=== PATIENT | female | born 1975 | race Caucasian/White ===

== ENCOUNTER 2017-11-07 14:41 | Emergency (ER) | payer OTHER, SELFPAY | END 2017-11-07 18:07 | disposition home or self-care (01) | PROVIDERS: Emergency Provider Emergency Medicine; Visit Provider Emergency Medicine | DX: N39.0 Urinary tract infection, site not specified (principal); Z88.0 Allergy status to penicillin | CPT/HCPCS: 36415; 71020; 80053; 81001; 83605; 85025; 87040; 87070; 87086; 87275; 87276; 87430; 99282 ==

== ENCOUNTER → 2020-08-03 10:10 | Outpatient (CLI) | payer MEDICAID, SELFPAY ==
[2020-08-03 10:39] LABS: Basophils # 0.1 K/mm3 (0-0.2); Basophils % 0.6 % (0.1-2.0); Eosinophils # 0.2 K/mm3 (0.0-0.4); Eosinophils % 2.4 % (0.1-12.0); Hematocrit 41.5 % (37.0-47.0); Hemoglobin 13.8 g/dL (12.2-16.2); Lymphocytes # 2.7 K/mm3 (0.7-4.5); Lymphocytes % 30.6 % (10-50); Mean Corpuscular HGB Conc 33.1 g/dL (31.8-35.4); Mean Corpuscular Hemoglobin 31.4 pg (27.0-31.2); Mean Corpuscular Volume 94.8 fl (81-99); Mean Platelet Volume 7.5 fl (7.4-10.4); Monocytes # 0.5 K/mm3 (0.1-1.0); Monocytes % 5.6 % (1.7-9.3); Neutrophils # 5.4 K/mm3 (1.8-7.8); Neutrophils % 60.9 % (37.0-80.0); Platelet Count 314 K/mm3 (142-424); Red Blood Count 4.38 M/mm3 (4.20-5.40); White Blood Count 8.9 K/mm3 (4.8-10.8)
[2020-08-03 11:17] LABS: Alanine Aminotransferase 10 U/L (12-78); Albumin/Globulin Ratio 1.4 (1.1-1.8); Alkaline Phosphatase 43 U/L (38-126); Anion Gap 11.7 mEq/L (5-15); Aspartate Amino Transferase 21 U/L (14-36); Bilirubin,Total 0.2 mg/dl (0.2-1.3); Blood Urea Nitrogen 11 mg/dl (7-17); Calcium 9.4 mg/dl (8.4-10.2); Carbon Dioxide 30 mmol/L (22.0-30.0); Chloride 102 mmol/L (98-107); Chol/HDL Ratio 3.3 (1-3.5); Cholesterol 135 mg/dl (140-200); Estimated Glomerular Filt Rate 79 ml/min (>60); GFR (African American) 95 ML/MIN (>60); Globulin 2.8 g/dL (1.3-3.2); Glucose 103 mg/dl (74-100); HDL Cholesterol 41 mg/dl (40-60); Potassium 4.7 mmoL/L (3.5-5.1); Sodium 139 mmol/L (136-145); Total Protein,Serum 6.8 g/dl (6.3-8.2); Triglycerides 149 mg/dl (30-150); VLDL Cholesterol 30 mg/dL (0-40)
[2020-08-03 11:27] LABS: Direct LDL Cholesterol 72.08 mg/dL (100-129)
--- NOTE | 2020-08-03 13:14 | US_ITS ---
PROCEDURE: US TRANSVAGINAL CLINICAL INDICATION: pelvic pain, enlarged uterus COMPARISON: No exams were available for comparison FINDINGS: UTERUS: 9cm x 5cmx 4cm with a combined endometrial thickness of 7.7mm LEFT OVARY: [id number] with a volume of 4.6ml. RIGHT OVARY: [id number] with a volume of 10.6ml. In the posterior aspect of the fundus of the uterus there is a 2.1 x 1.7 cm area of decreased echogenicity consistent with a uterine fibroid. Second fibroid is present in the fundus measuring 1.8 cm. There is an 18 mm left ovarian cyst and a 2.6 cm right ovarian cyst with an internal septation. No cul-de-sac fluid. IMPRESSION: 1. Slightly bulky uterus with 2 fibroids. 2. Small bilateral ovarian cysts Dictated by: Jeffrey Yung MD 08/03/2020 16:18 Jeffrey Yung MD in [place] 08/03/2020 16:18
--- NOTE | 2020-08-03 13:14 | MM_ITS ---
PROCEDURE: MM DIG SCREENING MAMM BI W/CAD Digital Breast Tomosynthesis Included CLINICAL INDICATION: baseline xmg There is no personal or family history of breast cancer. COMPARISON: This is a baseline screening exam, patient without complaints TECHNIQUE: Standard CC and MLO images and 3D Tomosynthesis was obtained. R2 CAD reviewed. FINDINGS: Moderate diffuse fibroglandular densities are seen in the central portions of both breast and upper outer quadrants. The findings are fairly symmetrical bilaterally. There is no suspicious lesion and no suspicious microcalcifications. IMPRESSION: Fibrofatty parenchyma with no suspicious lesions seen BI-RAD Category: 1 Negative FOLLOW-UP: 1YR 1 Year Follow-up (A letter has been sent to the patient regarding results of the study.) Dictated by: Dr. Leonardo Cordoba MD 08/04/2020 14:12 Dr. Leonardo Cordoba MD in [place] 08/04/2020 14:12
== END ==
PROVIDERS: PCP Family Medicine; Visit Provider Nurse Practitioner Obstetrics & Gynecology
DX: Z01.419 Encounter for gynecological examination (general) (routine) without abnormal findings (principal); Z12.31 Encounter for screening mammogram for malignant neoplasm of breast; N85.2 Hypertrophy of uterus; R10.2 Pelvic and perineal pain
CPT/HCPCS: 36415; 76830; 77063; 77067; 80053; 80061; 85025

== ENCOUNTER 2020-08-14 14:46 | Emergency (ER) | payer MEDICAID, SELFPAY ==
[2020-08-14 14:57] VITALS: BP 133/85; PULSE 73; RESP 19; TEMP 36.9; O2SAT 98; BMI 27.3
--- NOTE | 2020-08-14 15:13 | HMH.EDUTC ---
[facility] [place] Clinical Impression: Close exposure to COVID-19 virus Disposition: Home, Self-Care Condition on Discharge: Good Instructions: Preventing the Spread of Coronavirus Discharge Instructions Additional Instructions: You was tested for COVID 19 and was given handout, make sure to follow instructions per the handout Call back later this evening around 7pm to see if your test results are back and the result Return if needed Over the counter Motrin and/or Tylenol as instructed on the package for fever or pain Straight to ER if any life threatening symptoms Referrals: PCP,No [Primary Care Provider] - As needed Forms: Work/School Release Medical Decision Making - Cordell Inquiry Pt receiving controlled substance: No Cordell was queried for this patient: No Vital Signs: 08/14/20 14:57 Temperature 98.5 F Temperature Source Oral Pulse Rate [Right Brachial] 73 Respiratory Rate 19 Blood Pressure [Right Arm] 133/85 Blood Pressure Mean [Right Arm] 101 Blood Pressure Source [Right Arm] Automatic Cuff Blood Pressure Position [Right Arm] Sitting 02 Sat by Pulse Oximetry 98 Oxygen Delivery Method Room Air Orders (Tests/Meds): ORDERS Category Date Time Status Covid-19 Nasal PCR ([facility]) Routine Lab 08/14/20 14:51 Ordered [facility] [place] - General Stated complaint: covid test Time Seen by Provider: 08/14/20 15:13 Mode of Arrival: Ambulatory Source of Information: Patient Limitations: No Limitations Description of Symptoms (Recalled from Triage Doc. by RN): PATIENT NEEDING A COVID TEST FOR WORK. 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 for COVID States that the health dept called her earlier today and told her that she needs to be tested prior to returning to work due to working in such close proxemity Patient denies any symtpoms - Related Data Home Medications Medication Instructions Recorded Confirmed No Known Home Medications 07/25/20 08/14/20 Allergies Allergy/AdvReac Type Severity Reaction Status Date / Time Penicillins [PENICILLINS] Allergy Mild Verified 07/25/20 15:10 - Worker's Comp Is this a Worker's Comp case?: No [facility] History - Hepatitis A Screen Drug use history?: No High risk sexual behaviors?: No History of sexually transmitted infection?: No Currently employed?: No Childcare worker?: No Do you have indoor plumbing?: Yes Do you have electricity?: Yes Attestation statement:: This patient has been screened for Hepatitis A risk factors. I have reviewed the patient's past medical history: Yes Medical History: Denies:: Diabetes Mellitus Type 2, Hypertension Other Surgeries: Yes: No Previous Surgery, Tubal Ligation - Social History Smoking Status: Never smoker Alcohol Intake: never Occupational Status: other Family Hx:: Heart Attack, Hypertension, Cancer [employer] history: Tubal Ligation ROS Obtained: Yes All systems reviewed & no additional complaints, Yes Systems reviewed as appropriate & no additional complaints - Constitutional Constitutional: Reports system reviewed and no additional complaints, except as docu, Denies body ache, Denies chills, Denies fever(s), Denies headache(s) - ENT Ears, Nose, Mouth, and Throat: Denies sore throat - Cardiovascular Cardiovascular: Reports system reviewed and no additional complaints, except as docu - Respiratory Respiratory: Yes system reviewed and no additional complaints, except as docu - Gastrointestinal Gastrointestingal: Reports: system reviewed and no additional complaints,
[2020-08-14 15:21] VITALS: BP 133/85; PULSE 73; RESP 19; TEMP 36.9; O2SAT 98
== END 2020-08-14 15:22 | disposition home or self-care (01) ==
PROVIDERS: Emergency Provider Nurse Practitioner
DX: Z20.828 Contact with and (suspected) exposure to other viral communicable diseases (principal)
CPT/HCPCS: 99201; U0003

== ENCOUNTER → 2021-08-07 16:52 | Outpatient (CLI) | payer OTHER, SELFPAY ==
--- NOTE | 2021-08-07 16:57 | XR_ITS ---
PROCEDURE: XR CERVICAL SPINE 5V CLINICAL INDICATION: CERVICALGIA, LT ARM NUMBNESS COMPARISON: No exams were available for comparison FINDINGS: There is straightening of the cervical lordosis with 2 mm anterolisthesis of C4 on C5. Degenerative disc disease is present at C5-C6 and C6-C7. There are small anterior osteophytes at those levels. Minimal foraminal narrowing noted at C5-C6 and C6-C7 on both sides. No fracture or dislocation. No lytic or blastic change. No evidence of cervical rib. IMPRESSION: Straightening of cervical lordosis which could be due to patient positioning or muscle spasm with degenerative disc disease and minimal bilateral foraminal narrowing at C5-C6 and C6-C7 Dictated by: Jeffrey Yung MD 08/10/2021 16:12 Jeffrey Yung MD in [place] 08/10/2021 16:12
== END ==
PROVIDERS: PCP Family Medicine; Visit Provider Nurse Practitioner Family
DX: M54.2 Cervicalgia (principal); R20.0 Anesthesia of skin
CPT/HCPCS: 72050

== ENCOUNTER → 2021-09-03 07:48 | Outpatient (CLI) | payer OTHER, SELFPAY ==
--- NOTE | 2021-09-03 07:49 | CA_ITS ---
APPROVED REPORT Exam: Exercise Treadmill Technologist: MARAL MOLINA, Ht: 5 ft 0 in Wt: 137 lbs BSA: 1.59 m2 HR: 64 bpm BP: 130/78 mmHg Indications: CP, SHOULDER PAIN Medical History Medications: Metronidazole,,,,, Stress Test Details Test: Damien HR Resting HR: 72 bpm Max Heart Rate (APMHR): 177 bpm Max HR Achieved: 176 bpm Target HR (85% APMHR): 150 bpm % of APMHR: 99 Recovery HR: 104 bpm BP Resting BP: 130/78 mmHg Max BP: 190/90 mmHg Recovery BP: 140.0/89.0 mmHg ECG Resting ECG: Sinus Rhythm Clinical Exercise duration: 09:30 min Highest Stage Achieved: Exercise capacity: 10.1 METs Stress ECG Conclusion Exercised 9:30 METs: 10.1 Max BP: 190/90 Max HR: 176 bpm Stopped due to Shortness of Breath Symptoms: No CP, (+) SOB during peak infusion. Resolved in Recovery. Arrhythmias/Ectopy: No ectopy. ST-T Changes: greater than 1.5mm ST Depression. (1) GXT only (2) Appropriate BP response (3) Less than 1.5mm ST Depression at peak infusion (4) No CP (5) No Ectopy normal GXT Electronically signed by : Caio Donovan MD 09/03/2021 21:05:21
--- NOTE | 2021-09-03 07:49 | CA_ITS ---
APPROVED REPORT Coat Feller: Karen Giron RVT Laterality: Bilateral Study Quality: Good Indications: atypical angina/left arm numbness Risk Factors Hypertension: Doppler Spectral Velocity Analysis ECA (R) 89.80/20.30 cm/s ECA (L) 85.50/23.50 cm/s dICA (R) 99.40/44.90 cm/s dICA (L) 95.20/53.50 cm/s Arcelia (R) 93.00/43.80 cm/s Arcelia (L) 75.90/35.30 cm/s pICA (R) 61.00/24.60 cm/s pICA (L) 61.00/33.10 cm/s dCCA (R) 64.20/21.40 cm/s dCCA (L) 66.30/24.60 cm/s pCCA (R) 92.00/29.90 cm/s pCCA (L) 67.40/27.80 cm/s Vert (R) 28.90/12.80 cm/s Vert (L) 38.50/17.10 cm/s ICA/CCA 1.55 ICA/CCA 1.44 Findings Study suggests no evidence of stenosis of the right internal cartoid artery. Study suggests no evidence of stenosis of the left internal cartoid artery. Antegrade flow seen bilateral vertebral arteries. Conclusion Study suggests no evidence of stenosis of the right internal cartoid artery. Study suggests no evidence of stenosis of the left internal cartoid artery. Antegrade flow seen bilateral vertebral arteries. Electronically signed by : Jeffrey Yung MD 09/03/2021 15:24:51
--- NOTE | 2021-09-03 07:49 | CA_ITS ---
APPROVED REPORT EXAM: Comprehensive 2D, Doppler, and color-flow Echocardiogram Delivery Director: Karen Giron RVT Ht: 5 ft 0 in Wt: 137lbs BSA: 1.59 BP: 142/80 mmHg Indications: CP,LT ARM NUMBNESS,FAMILY HX CAD,SMOKER 2D Dimensions LVOT 1.99 cm (M/F) 1.5-2.5 LA Volume 38.30 mL LA Volume Index 24.08 mL/m2 (M/F) 16-34 M-Mode Dimensions RVDd 2.95 cm (0.9-2.6) LA Diam 2.94 cm (1.9-4.0) LVDd 4.73 cm (3.5-5.7) Ao Diam 2.79 cm (2.0-3.7) LVDs 2.98 cm (3.5-5.7) IVSd 0.44 cm (0.6-1.1) PWd 0.74 cm (0.6-1.1) EF (Teich) 66.90% FS 37.00% EDV (Teich) 103.90 mL TAPSE 1.69 (<1.7) ESV (Teich) 34.40 mL LV Diastology E Decel Time 183.00 (160-240 msec) E/A Ratio 1.7 MED E' 9.10 (< 7 cm/sec) E'/MED E' Ratio 8.01 (>14) LAT E' 15.40 (<10 cm/sec) E/LAT E' Ratio 4.73 (>14) Aortic Valve AO Peak GR. 3.20 mmHg Mitral Valve MV E Max Trip. 73.00 (40-130 cm/s) MV A Velocity 44.00 (40-130 cm/s) E/A Ratio 1.67 MV Decel. Time 183.00 (160-240 ms) MV PHT 54.00 ms Pulmonary Valve PV Peak Velocity 50.00 (50-150 cm/s) Tricuspid Valve TR P. Velocity 208.00 cm/s RAP Estimate 10.00 mmHg RVSP 27.30 mmHg Left Ventricle Left atrium is normal size, left ventricle is normal size, there is no concentric left ventricular hypertrophy, visually estimated ejection fraction 55% with no regional wall motion abnormality, diastolic parameters are within normal range. Right Ventricle Right atrium and right ventricle are normal size and contractility. Aortic Valve Aortic valve is grossly normal, there is no aortic stenosis or aortic insufficiency. Mitral Valve Mitral valve grossly normal, there is trace mitral regurgitation. Tricuspid Valve Tricuspid valve grossly normal, there is trace tricuspid regurgitation, tricuspid regurgitation jet velocity is inadequate for calculation of the right ventricular systolic pressure. Pulmonic Valve Pulmonic valve is poorly visualized. Great Vessels Aortic root is normal size. Inferior vena cava normal size with normal inspiratory collapse. Pericardium No significant pericardial effusion noted. Conclusion 1. Normal left ventricular size, preserved left ventricular systolic function, visually estimated ejection fraction 55% with no regional wall motion abnormality, diastolic parameters are within normal range. 2. Trace mitral and tricuspid regurgitation. 3. No significant pericardial effusion noted. 4. Inferior vena cava is normal size with normal inspiratory collapse. Electronically signed by : Caio Donovan MD 09/03/2021 21:31:14
--- NOTE | 2021-09-03 08:55 | MR_ITS ---
PROCEDURE: MR CERVICAL SPINE WO CON CLINICAL INDICATION: Left-sided neck and arm pain COMPARISON: CR XR CERVICAL SPINE 5V from 08/07/2021 TECHNIQUE: Standard multiplanar multiecho sequences are performed without contrast. 3-D MIP and myelographic images are also rendered and reviewed FINDINGS: There is reversal of the cervical lordosis. This could be due to patient positioning or muscle spasm. The craniocervical junction has an unremarkable appearance. C2-C3: Unremarkable. C3-C4: Unremarkable. C4-C5: Unremarkable. C5-C6: Mild degenerative disc disease. C6-C7: Mild degenerative disc disease with bulging disc. There is a small broad-based central right paracentral and foraminal disc protrusion causing mild right lateral recess and foraminal narrowing. There is some minimal cord flattening along the anterior right aspect of the cord secondary to the disc protrusion with narrowing of the canal on the right measuring approximately 9 mm. C7-T1: Unremarkable. No acute fracture or dislocation is evident. IMPRESSION: There is a small broad-based disc protrusion at C6-C7 in the right paracentral foraminal and lateral area causing right lateral recess narrowing with mild impingement upon the cord anteriorly and right foraminal narrowing. There is reversal cervical lordosis which may be due to patient positioning or muscle spasm. Mild degenerative disc disease C5-C6 and C6-C7. Dictated by: Jeffrey Yung MD 09/03/2021 13:06 Jeffrye Yung MD in [place] 09/03/2021 13:06
[2021-09-03 10:47] LABS: Basophils % 0.4 % (0.1-2.0); Eosinophils # 0.1 K/mm3 (0.0-0.4); Eosinophils % 1.3 % (0.1-12.0); Hematocrit 40.3 % (37.0-47.0); Hemoglobin 12.9 g/dL (12.2-16.2); Lymphocytes # 1.9 K/mm3 (0.7-4.5); Mean Corpuscular HGB Conc 32.1 g/dL (31.8-35.4); Mean Corpuscular Hemoglobin 31.8 pg (27.0-31.2); Mean Corpuscular Volume 99.1 fl (81-99); Mean Platelet Volume 7.5 fl (7.4-10.4); Monocytes # 0.5 K/mm3 (0.1-1.0); Monocytes % 4.6 % (1.7-9.3); Neutrophils # 7.4 K/mm3 (1.8-7.8); Neutrophils % 74.7 % (37.0-80.0); Platelet Count 309 K/mm3 (142-424); Red Blood Count 4.06 M/mm3 (4.20-5.40); Red Cell Distribution Width 13.5 % (11.5-17.5); White Blood Count 9.8 K/mm3 (4.8-10.8)
[2021-09-03 11:24] LABS: Chloride 105 mmol/L (98-107); Potassium 4.6 mmoL/L (3.5-5.1); Sodium 141 mmol/L (136-145)
[2021-09-03 11:27] LABS: Alanine Aminotransferase 8 U/L (12-78); Albumin Level 3.8 g/dl (3.5-5.0); Alkaline Phosphatase 52 U/L (38-126); Anion Gap 11.6 mEq/L (5-15); Aspartate Amino Transferase 20 U/L (14-36); Bilirubin,Direct 0.1 mg/dl (0.0-0.4); Blood Urea Nitrogen 14 mg/dl (7-17); Calcium 8.8 mg/dl (8.4-10.2); Carbon Dioxide 29 mmol/L (22.0-30.0); Cholesterol 140 mg/dl (140-200); Estimated Glomerular Filt Rate 91 ml/min (>60); GFR (African American) 111 ML/MIN (>60); Glucose 96 mg/dl (74-100); Total Protein,Serum 6.4 g/dl (6.3-8.2); Triglycerides 228 mg/dl (30-150); VLDL Cholesterol 46 mg/dL (0-40)
[2021-09-03 11:28] LABS: Chol/HDL Ratio 3.4 (1-3.5); HDL Cholesterol 41 mg/dl (40-60)
[2021-09-03 11:32] LABS: Bilirubin,Total 0.1 mg/dl (0.2-1.3)
[2021-09-03 11:39] LABS: Direct LDL Cholesterol 60.96 mg/dL (100-129)
[2021-09-03 11:47] LABS: Free T4 (Free Thyroxine) 0.84 ng/dl (0.78-2.19)
[2021-09-03 12:01] LABS: Thyroid Stimulating Hormone 2.42 uIU/mL (0.465-4.68)
== END ==
PROVIDERS: PCP Nurse Practitioner Family; Visit Provider Nurse Practitioner Family
DX: I20.8 Other forms of angina pectoris (principal); R20.0 Anesthesia of skin; Z72.0 Tobacco use; Z82.49 Family history of ischemic heart disease and other diseases of the circulatory system
CPT/HCPCS: 36415; 72141; 76376; 80048; 80061; 80076; 84439; 84443; 85025; 93017; 93306; 93880

== ENCOUNTER → 2021-11-02 10:55 | Outpatient (CLI) | payer OTHER, SELFPAY | PROVIDERS: PCP Nurse Practitioner Family; Visit Provider Nurse Practitioner | DX: U07.1 COVID-19 (principal) | CPT/HCPCS: C9803; U0003; U0005 ==

== ENCOUNTER 2022-06-10 15:34 | Emergency (ER) | payer OTHER, SELFPAY ==
[2022-06-10] VITALS (7 sets, daily range): BP systolic 133–175; BP diastolic 73–95; PULSE 58–74; RESP 16–18; TEMP 36.9–37.1; O2SAT 98–100; BMI 27.1
[2022-06-10 16:15] LABS: Basophils # 0.1 K/mm3 (0-0.2); Basophils % 0.7 % (0.1-2.0); Eosinophils # 0.2 K/mm3 (0.0-0.4); Eosinophils % 1.9 % (0.1-12.0); Hematocrit 34.7 % (37.0-47.0); Hemoglobin 11.7 g/dL (12.2-16.2); Lymphocytes # 3.1 K/mm3 (0.7-4.5); Lymphocytes % 33.1 % (10-50); Mean Corpuscular HGB Conc 33.8 g/dL (31.8-35.4); Mean Corpuscular Hemoglobin 29.3 pg (27.0-31.2); Mean Corpuscular Volume 86.6 fl (81-99); Mean Platelet Volume 6.8 fl (7.4-10.4); Monocytes # 0.4 K/mm3 (0.1-1.0); Monocytes % 4.1 % (1.7-9.3); Neutrophils # 5.6 K/mm3 (1.8-7.8); Neutrophils % 60.1 % (37.0-80.0); Platelet Count 335 K/mm3 (142-424); Red Blood Count 4.01 M/mm3 (4.20-5.40); Red Cell Distribution Width 14.3 % (11.5-17.5); White Blood Count 9.3 K/mm3 (4.8-10.8)
[2022-06-10 16:24] LABS: Chloride 104 mmol/L (98-107)
[2022-06-10 16:25] LABS: Potassium 3.6 mmoL/L (3.5-5.1); Sodium 137 mmol/L (136-145)
[2022-06-10 16:27] LABS: Blood Urea Nitrogen 16 mg/dl (7-17); Creatinine Clearance Estimated 89 mL/min (50-200); Estimated Glomerular Filt Rate 78 ml/min (>60); GFR (African American) 94 ML/MIN (>60)
[2022-06-10 16:28] LABS: Alanine Aminotransferase 14 U/L (12-78); Albumin Level 4.2 g/dl (3.5-5.0); Albumin/Globulin Ratio 1.5 (1.1-1.8); Alkaline Phosphatase 56 U/L (38-126); Anion Gap 8.6 mEq/L (5-15); Aspartate Amino Transferase 30 U/L (14-36); Bilirubin,Total 0.3 mg/dl (0.2-1.3); Calcium 9.3 mg/dl (8.4-10.2); Carbon Dioxide 28 mmol/L (22.0-30.0); Globulin 2.8 g/dL (1.3-3.2); Glucose 105 mg/dl (74-100)
--- NOTE | 2022-06-10 16:41 | HMH.EDGENADL ---
ED Disposition Clinical Impression: Left facial numbness Disposition: Home, Self-Care Condition on Discharge: Good Additional Instructions: I put in a referral for neurology for you to see Dr. Cox. Should call you to schedule his appointment. The neurosurgery department should also get you an appointment with Dr. Dillon Friday. Please call their office tomorrow but they should also be calling you to schedule. Please return with any new or worsening symptoms. Referrals: Lise Rubio APRN [Primary Care Provider] - Irene Cox MD [Staff Physician] - - Critical Care Critical Care Time: No Attestation: On 06/10/22, the high probability of a clinically significant, sudden or life threatening deterioration of the following system(s) required my full and direct attention, intervention and personal management. The time I documented below is in addition to time spent performing reported procedures but includes the following listed in this critical care notation. Medical Decision Making - Cordell Inquiry Pt receiving controlled substance: No Cordell was queried for this patient: No Vital Signs: 06/10/22 16:00 06/10/22 16:03 06/10/22 16:31 Temperature 98.5 F Temperature Source Oral Pulse Rate 74 63 Pulse Rate [Left Radial] 70 Respiratory Rate 18 Blood Pressure 175/95 H 137/73 Blood Pressure [Right Arm] 164/91 H Blood Pressure Mean 106 Blood Pressure Mean [Right Arm] 115 Blood Pressure Source [Right Arm] Automatic Cuff Blood Pressure Position [Right Arm] Sitting 02 Sat by Pulse Oximetry 99 100 98 Oxygen Delivery Method Room Air 06/10/22 17:01 06/10/22 17:30 06/10/22 18:00 Temperature Temperature Source Pulse Rate 64 58 L 60 Pulse Rate [Left Radial] Respiratory Rate Blood Pressure 135/86 145/82 H 133/79 Blood Pressure [Right Arm] Blood Pressure Mean 103 104 Blood Pressure Mean [Right Arm] Blood Pressure Source [Right Arm] Blood Pressure Position [Right Arm] 02 Sat by Pulse Oximetry 100 99 98 Oxygen Delivery Method - Lab Data Lab Results 06/10/22 16:00: WBC 9.3, RBC 4.01 L, Hgb 11.7 L, Hct 34.7 L, MCV 86.6, MCH 29.3, MCHC 33.8, RDW 14.3, Plt Count 335, MPV 6.8 L, Neut % (Auto) 60.1, Lymph % (Auto) 33.1, [place] % (Auto) 4.1, Eos % (Auto) 1.9, Baso % (Auto) 0.7, Neut # (Auto) 5.6, Lymph # (Auto) 3.1, [place] # (Auto) 0.4, Eos # (Auto) 0.2, Baso # (Auto) 0.1 06/10/22 16:00: Sodium 137, Potassium 3.6, Chloride 104, Carbon Dioxide 28, Anion Gap 8.6, BUN 16, Creatinine 0.80, Estimated Creat Clear 89, Estimated GFR 78, Est GFR ( Amer) 94, Glucose 105 H, Calcium 9.3, Total Bilirubin 0.3, AST 30, ALT 14, Alkaline Phosphatase 56, Total Protein 7.0, Albumin 4.2, Globulin 2.8, Albumin/Globulin Ratio 1.5 06/10/22 16:00: Serum HCG, Qual Negative Result diagrams: 06/10/22 16:00 06/10/22 16:00 Orders (Tests/Meds): ED MEDICATIONS Discontinued Medications Generic Name Dose Route Start Last Admin Trade Name Freq PRN Reason Stop Dose Admin Hydralazine HCl 10 mg 06/10/22 20:45 06/10/22 21:42 Hydralazine 20mg/Ml Vial IV 06/10/22 20:46 10 mg ONCE ONE Administration Medical Decision Narrative: In review this is a 46-year-old female who presents with left-sided facial numbness. Hemodynamically stable and nontoxic-appearing. Physical examination shows diminished sensation to the left sided V3 distribution but no other neurodeficits at this time. Due to this we will get laboratory studies as well as a head CT to evaluate for any abnormalities. Laboratory studies were unremarkable and nonactionable at this time. CT scan was pertinent for a frontal hemorrhage versus cavernous malformation. 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 I reassessed her and she continues to have some le
--- NOTE | 2022-06-10 17:15 | PC.NURSE ---
ED MD AT BEDSIDE FOR EVALUATION
--- NOTE | 2022-06-10 17:27 | CT_ITS ---
PROCEDURE INFORMATION: Exam: CT Head Without Contrast Exam date and time: 06/10/2022 5:33 PM Age: 46 years old Clinical indication: Stroke-like symptoms; Other: Face numbness/paresthesia; Additional info: Facial numbness TECHNIQUE: Imaging protocol: Computed tomography of the head without contrast. Radiation optimization: All CT scans at this facility use at least one of these dose optimization techniques: automated exposure control; mA and/or kV adjustment per patient size (includes targeted exams where dose is matched to clinical indication); or iterative reconstruction. Other technique: STROKE PROTOCOL was implemented. COMPARISON: MR CERVICAL SPINE WO CON 09/03/2021 9:06 AM FINDINGS: Brain: Hyperdense structure at the spears-white matter junction right frontal lobe that measures 0.9 cm in size. There is no other area of intracranial hemorrhage. There is no focal mass. There is no significant midline shift. Cerebral ventricles: No ventriculomegaly. Paranasal sinuses: Visualized sinuses are unremarkable. No fluid levels. Mastoid air cells: Visualized mastoid air cells are well aerated. Bones/joints: Unremarkable. No acute fracture. Soft tissues: Normal. IMPRESSION: 1. Hyperdense structure at the spears-white matter junction right frontal lobe that measures 0.9 cm in size. This may be sales representative uniforms of either a small focus of hemorrhage versus less likely a cavernous malformation. 2. The remainder of the examination is unremarkable. There is no other area of hemorrhage present. ASSESSMENT: ASPECTS ([place] Stroke Program Early CT Score) is 10.
[2022-06-10 17:45] LABS: HCG Qualitative, Serum Negative (Negative)
--- NOTE | 2022-06-10 20:47 | PC.NURSE ---
Calling [facility] for to transfer pt d/t Spontaneous Interacranial Hemorrhage VS Bleeding Venous Malformations. MD requests Neurosurgery.
--- NOTE | 2022-06-10 20:51 | PC.NURSE ---
requested radiology to power share CT head to [facility]
--- NOTE | 2022-06-10 20:52 | PC.NURSE ---
[facility] to s/w Selena
--- NOTE | 2022-06-10 20:55 | PC.NURSE ---
Dr. Dye s/w Dr. Walters w/ Neurosurgery
== END 2022-06-10 23:11 | disposition home or self-care (01) ==
PROVIDERS: Emergency Provider Student in an Organized Health Care Education/Training Program; PCP Nurse Practitioner Family
DX: R20.0 Anesthesia of skin (principal); Z88.0 Allergy status to penicillin; Z72.0 Tobacco use
CPT/HCPCS: 70450; 80053; 84703; 85025; 96374; 99284

== ENCOUNTER → 2022-10-18 14:58 | Outpatient (CLI) | payer OTHER, SELFPAY ==
--- NOTE | 2022-10-18 14:58 | MM_ITS ---
PROCEDURE INFORMATION: Exam: MG Bilateral Screening 3D Mammography Exam date and time: 10/18/2022 2:52 PM Age: 46 years old Clinical indication: Screening. No family history of breast cancer. TECHNIQUE: Imaging protocol: Bilateral Screening tomosynthesis and 2D mammography including computer-aided detection (CAD) when performed. COMPARISON: MG MM DIG SCREENING MAMM BI W/CAD 08/03/2020 1:50 PM FINDINGS: MAMMOGRAPHY: Breast composition: There are scattered areas of fibroglandular density. Mass: None. Architectural distortion: None. Calcifications: No suspicious calcifications. Asymmetric density: None. Skin thickening: None. Axillary adenopathy: None. IMPRESSION: No mammographic evidence of malignancy. Annual screening is recommended unless otherwise clinically indicated. ASSESSMENT: BI-RADS Category 1: Negative
== END ==
PROVIDERS: PCP Nurse Practitioner Family; Visit Provider Obstetrics & Gynecology
DX: Z12.31 Encounter for screening mammogram for malignant neoplasm of breast (principal)
CPT/HCPCS: 77063; 77067

== ENCOUNTER 2023-04-14 09:44 | Emergency (ER) | payer OTHER, SELFPAY ==
[2023-04-14 10:00] VITALS: BP 116/87; PULSE 82; RESP 16; TEMP 37.1; O2SAT 98; BMI 27.3
--- NOTE | 2023-04-14 10:15 | EXP.UTC ---
Discharge Plan Disposition Patient Disposition: Home, Self-Care Condition: Good Prescriptions Prescriptions: New azithromycin [Zithromax] 250 mg tablet 250 mg PO UD DOSE PK Qty: 6 0RF Rx Instructions: Take two (2) tablets today, then one (1) tablet days #2 thru #5 methylprednisolone 4 mg Tablets,Dose Pack 4 mg PO DIRECTED Qty: 21 0RF Referrals Follow up/Referrals: Melissa Padilla MD [Primary Care Provider] - See instructions Activity Restrictions/Add. Instructions Additional Instructions/Restrictions: Drink plenty of fluids. Take tylenol or ibuprofen for pain or fever. Take the medications as directed. Follow up with your regular doctor. GO TO THE ER FOR ANY WORSENING SYMPTOMS Throw your tooth brush away and get a new one. Clinical Impressions Clinical Impression: Pharyngitis Instructions Patient Instructions: Strep Throat, DI for Strep Throat Discharge ED Provider: You Ball [facility] [place] HPI General Stated complaint: sore throat, possible sinus infection Time Seen by Provider: 04/14/23 10:14 History of Present Illness Provider Complaint: She states that for the past 2 days she has had sore throat, chills, body aches and low grade fever. Related Data Previous Rx's Medication Instructions Recorded azithromycin 250 mg tablet 250 mg PO UD DOSE PK #6 tabs 04/14/23 (Zithromax) methylprednisolone 4 mg tablets in 4 mg PO DIRECTED #21 tabs 04/14/23 a dose pack Allergies Allergy/AdvReac Type Severity Reaction Status Date / Time Penicillins [PENICILLINS] Allergy Mild Verified 04/14/23 10:31 [facility] Disclaimer: The information contained in this section may have been updated after the patient was seen, as this information can be updated by other users. Medical History Menopausal syndrome (hot flashes) Surgical History H/O tubal ligation Family History Other No significant family history Social History Smoking Status: Current every day smoker second hand exposure: No alcohol intake: never current occupational status: other Travel in the last 8 weeks: Inside the [facility] ROS Obtained: Yes All systems reviewed & no additional complaints except as documented Constitutional Constitutional: Reports chills and Reports fever(s) Eyes Eyes: Denies eye discharge ENT Ears, Nose, Mouth, and Throat: Reports as per HPI Cardiovascular Cardiovascular: Denies chest pain Respiratory Respiratory: Denies chest congestion and Reports cough Gastrointestinal Gastrointestingal: Reports nausea; Denies abdominal pain, constipation, cramping, diarrhea or vomiting Musculoskeletal Musculoskeletal: Denies arthralgias Integumentary/Breasts Skin/Breast: Denies rash Neurologic Neurologic: Denies paresthesias Physical Exam General General appearance: alert and in no apparent distress Head Head exam: atraumatic, normocephalic and normal inspection Eye Eye exam: Present normal appearance, PERRL and EOMI ENT ENT exam: Present mucous membranes moist and normal external ear exam Expanded ENT Exam TM/Canal exam: Bilateral TM: erythema and bulging Nose exam: Absent sinus tenderness Mouth exam: Present normal external inspection; Absent drooling Teeth exam: Present normal inspection Throat exam: Present tonsillar erythema, tonsillomegaly and tonsillar exudate Neck Neck exam: Present normal inspection, full ROM and trachea midline; Absent tenderness, meningismus or lymphadenopathy Chest Chest inspection: Present normal inspection and symmetric chest wall rise; Absent tenderness Respiratory Respiratory exam: Present normal lung sounds bilaterally; Absent respiratory distress, wheezes or stridor Cardiovascular Cardiovascular exam: Present regular rate and normal rhyth
[2023-04-14 10:28] LABS: UTC Strep Screen (Rapid) Negative (Negative)
[2023-04-14 10:46] VITALS: BP 116/87; PULSE 82; RESP 16; TEMP 37.1; O2SAT 96
== END 2023-04-14 10:46 | disposition home or self-care (01) ==
PROVIDERS: Emergency Provider Nurse Practitioner Family; PCP Family Medicine
DX: J02.9 Acute pharyngitis, unspecified (principal); R50.9 Fever, unspecified; F17.210 Nicotine dependence, cigarettes, uncomplicated
CPT/HCPCS: 87880; 99212; 99214; G0463

== ENCOUNTER 2023-06-23 07:52 | Outpatient (CLI) | payer OTHER, SELFPAY ==
[2023-06-23 08:13] VITALS: BMI 27.1
[2023-06-23 08:15] VITALS: BP 146/76; PULSE 64; RESP 18; TEMP 36.2; O2SAT 95
[2023-06-23 08:39] LABS: Blood Urea Nitrogen 15 mg/dl (7-17); Calcium 8.8 mg/dl (8.4-10.2); Carbon Dioxide 27 mmol/L (22.0-30.0); Chloride 104 mmol/L (98-107); Creatinine Clearance Estimated 79 mL/min (50-200); Estimated Glomerular Filt Rate 68 ml/min (>60); GFR (African American) 82 ML/MIN (>60); Glucose 95 mg/dl (74-100); Sodium 138 mmol/L (136-145)
[2023-06-23 08:45] LABS: HCG Qualitative, Serum Negative (Negative)
[2023-06-23 08:53] VITALS: BP 149/88; PULSE 66; RESP 18; O2SAT 98
--- NOTE | 2023-06-23 08:53 | PC.NURSE ---
Pt escorted to CT room. VSS. No C/O
[2023-06-23 09:04] VITALS: BP 133/87; PULSE 71; RESP 18; O2SAT 98
== END 2023-06-23 09:10 | disposition home or self-care (01) ==
LOC: RAD 07:53
PROVIDERS: PCP Family Medicine; Visit Provider Nurse Practitioner Family
DX: R06.00 Dyspnea, unspecified (principal); R07.89 Other chest pain; R94.31 Abnormal electrocardiogram [ECG] [EKG]; Z72.0 Tobacco use; Z82.49 Family history of ischemic heart disease and other diseases of the circulatory system
CPT/HCPCS: 75574; 80048; 84703; Q9967

== ENCOUNTER → 2023-07-09 16:32 | Outpatient (CLI) | payer OTHER, SELFPAY ==
[2023-07-09 18:16] LABS: Thyroid Stimulating Hormone 1.41 uIU/mL (0.465-4.68)
== END ==
PROVIDERS: PCP Nurse Practitioner Family; Visit Provider Obstetrics & Gynecology
DX: N92.0 Excessive and frequent menstruation with regular cycle (principal); N93.9 Abnormal uterine and vaginal bleeding, unspecified
CPT/HCPCS: 36415; 84443

== ENCOUNTER → 2023-07-16 11:13 | Outpatient (CLI) | payer OTHER, SELFPAY ==
--- NOTE | 2023-07-16 11:14 | US_ITS ---
PROCEDURE: US TRANSVAGINAL CLINICAL INDICATION: abnormal uterine bleeding COMPARISON: No exams were available for comparison FINDINGS: Transvaginal sonographic images of the pelvis were obtained. UTERUS: 7.4 cm x 4.6 cmx 4.1 cm with a combined endometrial thickness of 7.1mm. There are 2 separate fibroids within the uterus. Fibroid 1. Is posterior measuring 2.1 cm x 2.0 cm Fibroid 2. Is anterior measuring 2.0 cm x 1.9 cm. The myometrium has a heterogenous appearance. LEFT OVARY: 1.3 cmx1.7 cmx1.3 cm. With a volume of 15.3ml. RIGHT OVARY: 3.1 cmx 2.4 cmx2.3 cm with a volume of 8.9ml. There is a simple appearing follicle in the right ovary measuring 2.3 cm x 3.5 cm. There is a solid-appearing area adjacent to or part of the right ovary that measures 4.9 cm x 4.4 cm x 4.9 cm. Both ovaries are seen. Doppler flow to both ovaries are seen. There is no fluid in the cul-de-sac. IMPRESSION: 1. Uterus is anteverted and normal in shape and size. The endometrium is normal. 2. There appear to be 2 fibroids in the myometrium. One is anterior and a 2nd is posterior. They both measure approximately 2 centimeters in size. 3. The left ovary appears normal. The right ovary has a follicle measuring 2.3 cm x 3.5 cm. 4. There is a solid area adjacent to or part of the right ovary that measures 4.9 centimeters in size. 5. CT scan might be helpful here to further investigate the right ovary. 6. There is no fluid in the cul-de-sac. Dictated by: Loc Giang MD 07/16/2023 15:27 Loc Giang MD in OV 07/16/2023 15:27
== END ==
PROVIDERS: PCP Nurse Practitioner Family; Visit Provider Obstetrics & Gynecology
DX: N93.9 Abnormal uterine and vaginal bleeding, unspecified (principal)
CPT/HCPCS: 76830

== ENCOUNTER → 2023-08-08 07:53 | Outpatient (CLI) | payer OTHER, SELFPAY ==
--- NOTE | 2023-08-08 07:53 | CT_ITS ---
FINAL REPORT TECHNIQUE: After the administration of oral and intravenous contrast, axial images were obtained through the abdomen and pelvis by computed tomography. The study was performed with techniques to keep radiation dose as low as reasonably achievable, (ALARA). Individual dose reduction techniques using automated exposure control or adjustment of mA and/or kV according to the patient's size were employed. CLINICAL HISTORY: abnormal utering bleeding, right sided mass found on us COMPARISON: Pelvic ultrasound 07/16/2023 FINDINGS: Abdomen: The lung bases are clear other than a few calcified granulomas. The liver parenchyma is homogeneous. The gallbladder is present. The spleen, pancreas, adrenals and kidneys appear unremarkable. The aorta is normal in caliber. There is no free fluid or adenopathy. Pelvis: The appendix is not identified. There is an enlarged and inhomogeneous uterus compatible with the diagnosis of a fibroid uterus, the largest measuring 2.4 cm eccentric to the left. There is a right adnexal mass which has density characteristics compatible with fat, fluid, and calcification. This measures 5.1 cm in greatest diameter and is best seen on image #105 of series 2. The urinary bladder is unremarkable. There is no free fluid or adenopathy. IMPRESSION: Right adnexal mass, which contains fat, fluid, and calcification, measuring 5.1 cm in greatest diameter. 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 Enlarged and inhomogeneous uterus compatible with multiple fibroids. Reviewed, Interpreted and Dictated by Tadeo Monsivais MD Transcribed by Rachel Mo Authenticated and [facility]
== END ==
PROVIDERS: PCP Nurse Practitioner Family; Visit Provider Obstetrics & Gynecology
DX: N92.0 Excessive and frequent menstruation with regular cycle (principal); N93.9 Abnormal uterine and vaginal bleeding, unspecified
CPT/HCPCS: 74177; Q9967

== ENCOUNTER → 2023-10-14 11:22 | Outpatient (CLI) | payer OTHER, SELFPAY ==
[2023-10-14 11:54] LABS: Basophils % 0.4 % (0.1-2.0); Eosinophils # 0.1 K/mm3 (0.0-0.4); Eosinophils % 0.6 % (0.1-12.0); Hematocrit 39.5 % (37.0-47.0); Hemoglobin 13.5 g/dL (12.2-16.2); Lymphocytes # 1.6 K/mm3 (0.7-4.5); Lymphocytes % 20.4 % (10-50); Mean Corpuscular HGB Conc 34.2 g/dL (31.8-35.4); Mean Corpuscular Hemoglobin 32.3 pg (27.0-31.2); Mean Corpuscular Volume 94.3 fl (81-99); Mean Platelet Volume 7.6 fl (7.4-10.4); Monocytes # 0.5 K/mm3 (0.1-1.0); Monocytes % 5.8 % (1.7-9.3); Neutrophils # 5.7 K/mm3 (1.8-7.8); Neutrophils % 72.9 % (37.0-80.0); Platelet Count 241 K/mm3 (142-424); Red Blood Count 4.19 M/mm3 (4.20-5.40); Red Cell Distribution Width 14.6 % (11.5-17.5); White Blood Count 7.8 K/mm3 (4.8-10.8)
[2023-10-14 12:49] LABS: Chloride 102 mmol/L (98-107); Potassium 4.1 mmoL/L (3.5-5.1); Sodium 138 mmol/L (136-145)
[2023-10-14 12:52] LABS: Alanine Aminotransferase 21 U/L (12-78); Albumin Level 4.1 g/dl (3.5-5.0); Albumin/Globulin Ratio 1.5 (1.1-1.8); Alkaline Phosphatase 58 U/L (38-126); Anion Gap 9.1 mEq/L (5-15); Aspartate Amino Transferase 28 U/L (14-36); Bilirubin,Total 0.3 mg/dl (0.2-1.3); Blood Urea Nitrogen 15 mg/dl (7-17); Calcium 8.6 mg/dl (8.4-10.2); Carbon Dioxide 31 mmol/L (22.0-30.0); Estimated Glomerular Filt Rate 78 ml/min (>60); GFR (African American) 94 ML/MIN (>60); Globulin 2.8 g/dL (1.3-3.2); Glucose 101 mg/dl (74-100); Total Protein,Serum 6.9 g/dl (6.3-8.2)
[2023-10-14 13:10] LABS: HCG,Quantitative < 2 mIU/ml (0-5.42)
== END ==
PROVIDERS: PCP Family Medicine; Visit Provider Obstetrics & Gynecology
DX: N93.9 Abnormal uterine and vaginal bleeding, unspecified (principal)
CPT/HCPCS: 36415; 80053; 84702; 85025

== ENCOUNTER 2023-10-21 13:46 | Inpatient (IN) | payer OTHER, SELFPAY ==
[2023-10-21] VITALS (23 sets, daily range): BP systolic 140–191; BP diastolic 76–108; PULSE 60–96; RESP 12–20; TEMP 36.3–36.9; O2SAT 94–100; BMI 27.9
--- NOTE | 2023-10-21 07:25 | EXP.HP ---
History of Present Illness *Admission Date: 10/21/23 *Reason for visit:: Abnormal uterine bleeding, menorrhagia, dyspareunia, dermoid ovarian cyst *History of present illness: Mrs Vicky Pedersen is a very pleasant 47 yo [id number] who presents to [facility] for scheduled surgery. She complains of worsening periods. Periods are regular, monthly. Flow is extremely heavy and lasts 10-11 days. She never misses work and had to miss work with her last period. She also reports decreased libido. She has history of x 3 (twin delivery). Surgical history significant for laparoscopic tubal ligation. Pelvic ultrasound 07/16/23 demonstrated: Uterus anteverted and normal in shape and size. The endometrium is normal. There appear to be 2 fibroids in the myometrium. One is anterior and a 2nd is posterior. They both measure approximately 2 centimeters in size. 3. The left ovary appears normal. The right ovary has a follicle measuring 2.3 cm x 3.5 cm. There is a solid area adjacent to or part of the right ovary that measures 4.9 centimeters in size. There is no fluid in the cul-de-sac. CT scan 08/08/23 demonstrated right adnexal mass, which contains fat, fluid, and calcification, measuring 5.1 cm in greatest diameter. 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 Enlarged and inhomogeneous uterus compatible with multiple fibroids. [facility] Disclaimer: The information contained in this section may have been updated after the patient was seen, as this information can be updated by other users. Medical History (Updated 10/21/23 @ 07:28 by Jaida Garcia DO) Abnormal uterine bleeding Dermoid cyst of right ovary Dyspareunia Fibroid uterus Menopausal syndrome (hot flashes) Menorrhagia Surgical History H/O tubal ligation Family History Other Heart attack Hypertension Social History Smoking Status: Former smoker second hand exposure: No alcohol intake: never current occupational status: employed and other Travel in the last 8 weeks: Inside the [place] Review of Systems Review of Systems Review of systems:: pertinent systems reviewed and negative unless documented below *Genitourinary Genitourinary: Reports abnormal menses, Reports dyspareunia and Reports menorrhagia Meds Home Medications and Allergies Home Medications Medication Instructions Recorded Confirmed Type aspirin 81 mg tablet 81 mg PO DAILY Blood Thinner 06/13/23 10/17/23 History multivitamin (Daily Multi-Vitamin 1 tab PO DAILY Supplement 06/13/23 10/17/23 History tablet) New Prescriptions to Start Prescriptions: Allergies Allergy/AdvReac Type Severity Reaction Status Date / Time Penicillins [PENICILLINS] Allergy Mild Verified 10/17/23 11:01 Exam Data for Last 24 hours Vital signs and Labs for Last 24 Hours: Temp Pulse Resp BP Pulse Ox O2 Del Method 97.5 F L 60 20 154/84 H 96 Room Air 10/21/23 06:21 10/21/23 06:21 10/21/23 06:21 10/21/23 06:21 10/21/23 06:21 10/21/23 06:21 Constitutional Constitutional: no acute distress and cooperative *Routine HEENT Exam Head: Present normocephalic and atraumatic Eye: Absent conjunctivae pink ENT: Present mucous membranes moist *Routine Neck Exam Neck: Present full ROM *Routine Respiratory Exam Respiratory: Present CTA bilaterally and normal respiratory effort *Routine Cardiovascular Exam Cardiovascular: Present RRR *Routine Abdominal Exam Abdominal: Present soft and normoactive bowel sounds; Absent tenderness or distended *Routine Rectal Exam Rectal:: deferred *Routine Genitalia Exam Genitalia:: normal female *Routine Extremities Exam Extremities: Present full ROM; Absent edema or calf tenderness *Routine Neurological Exam Neurological: Present alert, oriented X3 and moving all extremities
--- NOTE | 2023-10-21 07:53 | EXP.ANES.CKL ---
[facility] Disclaimer: The information contained in this section may have been updated after the patient was seen, as this information can be updated by other users. Medical History (Updated 10/21/23 @ 07:28 by Jaida Garcia DO) Abnormal uterine bleeding Dermoid cyst of right ovary Dyspareunia Fibroid uterus Menopausal syndrome (hot flashes) Menorrhagia Surgical History H/O tubal ligation Family History Other Heart attack Hypertension Social History Smoking Status: Former smoker second hand exposure: No alcohol intake: never substance use type: denies use current occupational status: employed and other Travel in the last 8 weeks: Inside the [place] [facility] Anesthesia Checklist Patient Identification Patient Identification: Verbal (Name & ) Structural Data Admitted From: Home Planned Operative Procedure/s: long,bso Consent for Planned Operative Procedure(s) Verified: Yes NPO Status Verified Time NPO: 00:00 Additional verifications Anesthesia Reactions: No Hx Blood Transfusions: No Blood Transfusion Reaction: No Airway Assessment Mallampati Score:: Class II C-Spine Mobility Assessed: Yes TMJ Mobility Assessed: Yes Dentition: Good Dentition Neurological Assessment Level of Consciousness: Awake, Alert and Appropriate Anesthesia Plan Anesthesia Risk discussed: Yes Anesthesia Plan: Verified ASA Class: II Anesthesia Type: General
--- NOTE | 2023-10-21 09:52 | P.PNANES_ITS ---
[facility] Anesthesia Record Part I Anesthesia Record I Intake, IV Amount: 2,000 Hydration: Adequate Estimated blood loss (mL): 150 Urine output (mL): 200 Blood Pressure: 158/90 SaO2: 98 Pulse Rate: 83 Airway Patency: Patent Respiratory Rate: 12 Temperature: 97.9 F Patient is:: Awake and Stable Stable to PACU at:: 09:45 Comments:: tap block per Dr Garcia
--- NOTE | 2023-10-21 09:55 | SUR.OPER ---
after procedure urine was noted to have blood in it. Dr Garcia is aware, seen it and stated to watch it. Walsh bag was emptied with about 300ml of urine in the bag. Gave report to keron reese rn and showed her the walsh bag.
--- NOTE | 2023-10-21 10:00 | EXP.OP.NOTE ---
Date of procedure: 10/21/23 Pre-op Diagnosis:: 1. Abnormal uterine bleeding 2. Menorrhagia 3. Dyspareunia 4. Dermoid cyst of right ovary Post-op Diagnosis:: 1. Abnormal uterine bleeding 2. Menorrhagia 3. Dyspareunia 4. Dermoid cyst of right ovary Procedure performed:: Total Abdominal Hysterectomy, bilateral salpingo oophorectomy Surgeon:: Jaida Garcia DO Carbonation Equipment Operator(s):: Anali Nathan DO [employer]ANDSCAPING [employer] GROUNDSK[employer] LABORER:: Samir Henriquez Anesthesia: GETA Estimated blood loss (mL): 150 Clinical Note:: Mrs Vicky Pedersen is a very pleasant 47 yo P3004 who presents to [facility] for scheduled surgery. She complains of worsening periods. Periods are regular, monthly. Flow is extremely heavy and lasts 10-11 days. She never misses work and had to miss work with her last period. She also reports decreased libido. She has history of x 3 (twin delivery). Surgical history significant for laparoscopic tubal ligation. Pelvic ultrasound 07/16/23 demonstrated: Uterus anteverted and normal in shape and size. The endometrium is normal. There appear to be 2 fibroids in the myometrium. One is anterior and a 2nd is posterior. They both measure approximately 2 centimeters in size. 3. The left ovary appears normal. The right ovary has a follicle measuring 2.3 cm x 3.5 cm. There is a solid area adjacent to or part of the right ovary that measures 4.9 centimeters in size. There is no fluid in the cul-de-sac. CT scan 08/08/23 demonstrated right adnexal mass, which contains fat, fluid, and calcification, measuring 5.1 cm in greatest diameter. 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 Enlarged and inhomogeneous uterus compatible with multiple fibroids. Operative findings:: 1. Uterus normal size and shape, midposition, freely moveable. 2. 5 cm right ovarian cyst 3. Grossly normal appearing bilateral fallopian tubes and left ovary 4. Grossly normal appearing bowel and omentum Operative note:: Discussed risks, benefits, alternatives, expectations and possible complications of surgery. All questions addressed and answered. Patient wished to proceed with surgery. Patient was wheeled back to the operating room and placed under general anesthesia without difficulty. The patient received Clindamycin and Gentamicin preoperatively. SCDs in place. Castanon catheter was inserted and draining clear urine prior to the start of the procedure. Vagina was prepped with betadine swabs x 3. She was placed in the supine position. She was prepped and draped in normal sterile fashion. Attention was then turned to the abdomen. A Pfannenstiel skin incision was made 2 cm above pubic symphysis. This was carried through to underlying layer of fascia. Fascia was incised in midline, extended laterally with Ye scissors. Superior aspect of fascial incision was grasped with two Jonatan clamps, elevated up, and rectus muscle dissected off bluntly and sharply with Ye scissors. The retcus muscle was then in the midline and the peritoneum was entered bluntly with a digit. Peritoneal incision was then extended superiorly and inferiorly with good visualization of the bladder. O'Kris O'wong retractor was placed in the abdominal incision. Bowel was packed cephalad with warm moist laparotomy sponges. Uterus was deviated to the left, right IP ligament was clamped, ligated and transected with Enseal device. Enseal was then used to ligate transect the mesosalpinx along the right fallopian tube to the right cornua. Fallopian tube was transected at the cornua removing right ovary with cyst and fallopian tube. Right round ligament was placed on stretch and incised between two clamps. The distal stump of the round ligament was suture ligated with 0 Vicryl suture. The proximal stump was held with a Sara clamp. The leaves of the broad ligament were opened both anteriorly and posteriorly. The uterus was retracted cephalad. The anterior leaf of the broad ligament was opened down to the vesicout
--- NOTE | 2023-10-21 10:18 | PC.NURSE ---
received report from keron corbin
--- NOTE | 2023-10-21 10:33 | PC.NURSE ---
1015: Urine was clear and blood tinged upon exit of PACU.
--- NOTE | 2023-10-21 10:42 | PC.NURSE ---
provided pt with kpad due to back pain. rating 2/10. repositioned pt as well. will reassess in 30 minutes.
--- NOTE | 2023-10-21 11:02 | PC.NURSE ---
pt states kpad and repositioning helped with pain. denies need for pain medication at this time.
--- NOTE | 2023-10-21 12:50 | EXP.ANES.II ---
[facility] Anesthesia Record Part II Anesthesia Record Part II Discharge Time: 10:15 Destination: Obstetric PACU nurse assessment reviewed?: Yes Patient Condition:: Good Anesthesia Complications:: None Swallowing reflex intact?: Yes Airway Patency: Patent Cyanosis?: No Blood Pressure: 172/92 SaO2: 100 Respiratory Rate: 18 Pulse Rate: 72 Temperature: 97.9 F Mental Status: Alert & Oriented Pain level:: 2 Nausea and/or vomitting:: None Intake, IV Amount: 0 Hydration: Adequate
--- NOTE | 2023-10-21 18:11 | PC.NURSE ---
A&OX4. PT HAS TOLERATED RA WELL THROUGHOUT SHIFT. RESPIRATIONS REGULAR AND UNLABORED. LUNG SOUNDS BILATERALLY CLEAR. NO COUGH NOTED. NO EDEMA NOTED. HEART RATE REGULAR. +2 PULSES NOTED THROUGHOUT. GUM AND INCENTIVE SPIROMETER PROVIDED TO PT. INSTRUCTED TO CHEW GUM 2-3 TIMES FOR 20 MINUTES AND USE INCENTIVE SPIROMETER 10 TIMES EVERY HOUR WHILE AWAKE. HYPOACTIVE BOWEL SOUNDS. SOFT AND NONTENDER ABDOMEN. DENIES FLATUS BEING PASSED. CATHETER WAS REMOVED WITHIN THE LAST HOUR. PT HASN'T VOIDED YET. WILL CONTINUE TO MONITOR. URINE WAS PINK VS THIS AM WHEN SHE ARRIVED TO THE FLOOR WHERE IT WAS LIGHT RED. LR INFUSING AT 125ML/HR. DRESSING NOTED TO LOWER ABDOMEN. CDI. HAS REMAINED AT BEDSIDE. PT TOLERATED CLEAR LIQUID AND FULL LIQUID DIET WELL. PT HAS REPORTED PAIN 3 TIMES IN HER BACK RATING IT A 3-4. PT RECEIVED OXYCODONE, TYLENOL, AND TORADOL PER JAN. PT WAS ALSO REPOSITIONED AND A KPAD WAS APPLIED TO HELP WITH PAIN. REPORTS THE BACK IN THE LOWEST PART OF HER BACK. ALSO STATES HER RLQ OF ABDOMEN IS STARTING TO BECOME SORE. NO BRUISING NOTED TO BACK OR REDNESS. PT RECEIVED CLINDAMYCIN ONCE THIS SHIFT AND TOLERATED WELL. NO QUESTIONS OR CONCERNS VOICED. BED IN LOWEST POSITION. CALL LIGHT WITHIN REACH. VSS.
--- NOTE | 2023-10-21 18:47 | PC.NURSE ---
PT AMBULATED TO RESTROOM WITH STANDBY ASSISTANCE TO VOID. PT SUCCESSFULLY VOIDED. TOLERATED AMBULATION WELL AND STATES IT FELT GOOD TO GET UP AND WALK. PT RETURNED BACK TO BED. CALL LIGHT WITHIN REACH. BED IN LOWEST POSITION.
--- NOTE | 2023-10-21 19:15 | PC.NURSE ---
REPORT RECIEVED FROM MICHAEL
--- NOTE | 2023-10-21 21:30 | PC.NURSE ---
PT WAS GIVEN HER SY.[id number] MG IVP AND MIRALAX.ALSO GAVE HER OXYCODONE 5 MG FOR ABD PAIN,MORE SO ON HER RIGHT SIDE.SHE RATES IT A 2 ON SCALE OF 0-10.SHE HAD WENT TO BR WITH STANDBY ASSIST AND WHEN SHE CAME BACK TO BED AND SHE SAID SHE HAD SOME SHARP PAIN IN LOWER ABD.SHE REPORTS SHE THINKS IT IS GAS.SO WE AMBULATED AROUND THE UNIT X1 AND PT IS CHEWING GUM.ASKED IF SHE WANTED TO ROCK IN ROCKING CHAIR WHICH COULD HELP THE GAS OR GO BACK TO BED SHE CHOOSE TO GO BACK TO BED.BED SIDE TABLE AND CALL HENDERSON IN REACH
[2023-10-22 03:30] VITALS: BP 133/71; PULSE 74; RESP 17; TEMP 36.7; O2SAT 97
--- NOTE | 2023-10-22 03:46 | PC.NURSE ---
UPON ENTERING ROOM PT WAS SLEEPING,EASILY AROUSED,SHE REPORTS SHE HAD ROLLED OVER ON HER SIDE AND IT HELPED WITH TAKING SOME OF THE PRESSURE OFF HER ABD.HYPERACTIVE BOWEL SOUNDS NOTED.PT DENIES PASSING ANY GAS YET.DRESSING STILL WITH THE SMALL FAINT SPOT OF BLOOD IN CENTER OF DRESSING,LUNGS CLEAR,RESP.EVEN AND UNLABORED.V/S STABLE.PT AFIBRILE.PT VOIDING WITHOUT DIFF.MEDICATED WITH SY.TORADOL AND TYLENOLPT RATES PAIN A 2 OF 0-10.PT CHEWING GUM TO TRY AND RELIEF THE GAS.PT HAS BEEN ENCOURAGED TO AMBULATE TO RELIEF GAS.BEDSIDE TABLE AND CALL HENDERSON WITHIN REACH.
[2023-10-22 05:17] LABS: Basophils % 0.2 % (0.1-2.0); Eosinophils % 0.3 % (0.1-12.0); Hematocrit 32.6 % (37.0-47.0); Hemoglobin 11.1 g/dL (12.2-16.2); Lymphocytes # 1.5 K/mm3 (0.7-4.5); Lymphocytes % 13.3 % (10-50); Mean Corpuscular Volume 94.1 fl (81-99); Mean Platelet Volume 7.8 fl (7.4-10.4); Monocytes # 0.6 K/mm3 (0.1-1.0); Neutrophils # 9.5 K/mm3 (1.8-7.8); Neutrophils % 81.3 % (37.0-80.0); Platelet Count 294 K/mm3 (142-424); Red Blood Count 3.46 M/mm3 (4.20-5.40); Red Cell Distribution Width 14.7 % (11.5-17.5); White Blood Count 11.7 K/mm3 (4.8-10.8)
[2023-10-22 05:27] LABS: Chloride 102 mmol/L (98-107); Potassium 3.9 mmoL/L (3.5-5.1); Sodium 136 mmol/L (136-145)
[2023-10-22 05:29] LABS: Alanine Aminotransferase 26 U/L (12-78); Aspartate Amino Transferase 31 U/L (14-36); Blood Urea Nitrogen 7 mg/dl (7-17); Creatinine Clearance Estimated 91 mL/min (50-200); Estimated Glomerular Filt Rate 78 ml/min (>60); GFR (African American) 94 ML/MIN (>60)
[2023-10-22 05:30] LABS: Albumin Level 3.5 g/dl (3.5-5.0); Albumin/Globulin Ratio 1.4 (1.1-1.8); Alkaline Phosphatase 28 U/L (38-126); Anion Gap 8.9 mEq/L (5-15); Bilirubin,Total 0.5 mg/dl (0.2-1.3); Calcium 8.3 mg/dl (8.4-10.2); Carbon Dioxide 29 mmol/L (22.0-30.0); Globulin 2.5 g/dL (1.3-3.2); Glucose 108 mg/dl (74-100)
--- NOTE | 2023-10-22 06:43 | PC.NURSE ---
WHEN PT WENT TO BATHROOM SHE VOIDED 300ML AND SAID SHE WAS BLEEDING SOME.CRAMPING AND NOW RATING PAIN A 4 ON SCALE OF 0-10.MEDICATED WITH OXYCODONE 5MG.PO.PT SITTING UP IN ROCKING CHAIR,SHE REPORTS PASSING GAS
--- NOTE | 2023-10-22 06:52 | PC.NURSE ---
MAKING AM ROUNDS,ORDERS RECEIVED FOR REG.DIET
[2023-10-22 09:25] VITALS: BP 149/75; PULSE 75; RESP 16; TEMP 36.6; O2SAT 99
--- NOTE | 2023-10-22 13:26 | EXP.DC.SUM ---
General Admission date:: 10/21/23 Discharge date: 10/22/23 HPI HPI HPI: POD # 1 s/p ROBERTO, BSO Sitting comfortably in rocking chair. Pain controlled. Light vaginal spotting. Voiding without difficulty and passing flatus. Tolerating regular diet. Denies fever/chills, chest pain and shortness of breath. No lower extremity swelling. Ambulating well ad sivakumar. Hospital Course Hospital Course Hospital Course: Mrs Vicky Pedersen is a very pleasant 47 yo P3004 who presents to [facility] for scheduled surgery. She complains of worsening periods. Periods are regular, monthly. Flow is extremely heavy and lasts 10-11 days. She never misses work and had to miss work with her last period. She also reports decreased libido. She has history of x 3 (twin delivery). Surgical history significant for laparoscopic tubal ligation. Pelvic ultrasound 07/16/23 demonstrated: Uterus anteverted and normal in shape and size. The endometrium is normal. There appear to be 2 fibroids in the myometrium. One is anterior and a 2nd is posterior. They both measure approximately 2 centimeters in size. 3. The left ovary appears normal. The right ovary has a follicle measuring 2.3 cm x 3.5 cm. There is a solid area adjacent to or part of the right ovary that measures 4.9 centimeters in size. There is no fluid in the cul-de-sac. CT scan 08/08/23 demonstrated right adnexal mass, which contains fat, fluid, and calcification, measuring 5.1 cm in greatest diameter. 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 Enlarged and inhomogeneous uterus compatible with multiple fibroids. She underwent a total abdominal hysterectomy with bilateral salpingo oophorectomy on 10/21/23. She did well postoperatively. Pain controlled. Voiding without difficulty and passing flatus. Tolerating regular diet. Vital signs stable, afebrile. Heart regular rate and rhythm. Lungs clear to auscultation. Abdomen soft, nontender, normal bowel sounds in all 4 quadrants. She was ambulating well ad sivakumar. Discharged home on POD # 1 with instructions to follow-up in the office in 2 weeks or sooner if needed. Exam Data for Last 24 hours Vital signs and Labs for Last 24 Hours: Temp Pulse Resp BP Pulse Ox O2 Del Method 97.9 F 75 16 149/75 H 99 Room Air 10/22/23 09:25 10/22/23 09:25 10/22/23 09:25 10/22/23 09:25 10/22/23 09:25 10/22/23 13:00 Laboratory Results - last 24 hr 10/22/23 05:06: WBC 11.7 H, RBC 3.46 L, Hgb 11.1 L, Hct 32.6 L, MCV 94.1, MCH 32.0 H, MCHC 34.0, RDW 14.7, Plt Count 294, MPV 7.8, Neut % (Auto) 81.3 H, Lymph % (Auto) 13.3, [place] % (Auto) 5.0, Eos % (Auto) 0.3, Baso % (Auto) 0.2, Neut # (Auto) 9.5 H, Lymph # (Auto) 1.5, [place] # (Auto) 0.6, Eos # (Auto) 0.0, Baso # (Auto) 0.0, Sodium 136, Potassium 3.9, Chloride 102, Carbon Dioxide 29, Anion Gap 8.9, BUN 7, Creatinine 0.80, Estimated Creat Clear 91, Estimated GFR 78, Est GFR ( Amer) 94, Glucose 108 H, Calcium 8.3 L, Total Bilirubin 0.5, AST 31, ALT 26, Alkaline Phosphatase 28 L, Total Protein 6.0 L, Albumin 3.5, Globulin 2.5, Albumin/Globulin Ratio 1.4 I & O for Last 24 hours: Intake & Output 10/19/23 10/20/23 10/21/23 10/22/23 23:59 23:59 23:59 23:59 Intake Total 4600 / 4600 Output Total 2300 / 2300 600 / 600 Balance 2300 / 2300 -600 / -600 Weight 143 lb Constitutional Constitutional: no acute distress and cooperative *Routine HEENT Exam Head: Present normocephalic and atraumatic Eye: Absent conjunctivae pink ENT: Present mucous membranes moist *Routine Neck Exam Neck: Present full ROM *Routine Respiratory Exam Respiratory: Present CTA bilaterally and normal respiratory effort *Routine Cardiovascular Exam Cardiovascular: Present RRR *Routine Abdominal Exam Abdominal: Present soft and normoactive bowel sounds; Absent tenderness or distended Comments: Incision clean/dry/intact with steri strips in place *Routine Rectal Exam Patient deferred: visual exam *Routine
--- NOTE | 2023-10-22 14:25 | PC.NURSE ---
Discharge education provided, questions encouraged and answered. Pt. v/u.
--- NOTE | 2023-10-22 14:40 | PC.NURSE ---
Pt. left unit via wheelchair accompanied by staff x1 to private vehicle where spouse was waiting.
== END 2023-10-22 14:38 | disposition home or self-care (01) | DRG 735 ==
LOC: OB 13:47
PROVIDERS: Admitting Provider Obstetrics & Gynecology; PCP Family Medicine; Visit Provider Obstetrics & Gynecology
PROC: 0UT90ZZ Resection of Uterus, Open Approach (ICD-10-PCS; CPT 58150; principal; 2023-10-21 07:30)
DX: D27.0 Benign neoplasm of right ovary (principal); N92.1 Excessive and frequent menstruation with irregular cycle; D25.9 Leiomyoma of uterus, unspecified; N92.0 Excessive and frequent menstruation with regular cycle
CPT/HCPCS: 58150; 36415; 80053; 85025; 87086; 96374; J2405; J2710

== ENCOUNTER → 2023-11-06 17:12 | Outpatient (CLI) | payer OTHER, SELFPAY | PROVIDERS: PCP Obstetrics & Gynecology; Visit Provider Obstetrics & Gynecology | DX: R31.9 Hematuria, unspecified (principal); B95.2 Enterococcus as the cause of diseases classified elsewhere | CPT/HCPCS: 87086 ==

== ENCOUNTER 2023-11-26 14:42 | Emergency (ER) | payer OTHER, SELFPAY ==
[2023-11-26 14:44] VITALS: BP 163/90; PULSE 75; RESP 18; TEMP 36.7; O2SAT 100; BMI 28.1
[2023-11-26 15:59] LABS: Microscopic, Urine URINE MICROSCOPIC (MICROSCOPIC)
--- NOTE | 2023-11-26 16:10 | HMH.EDGENADL ---
Discharge Plan Disposition Patient Disposition: Home, Self-Care Condition: Good Prescriptions Prescriptions: No Action multivitamin [Daily Multi-Vitamin] Tablet 1 tab PO DAILY aspirin 81 mg tablet 81 mg PO DAILY ciprofloxacin HCl 250 mg tablet 250 mg PO Q12H 3 Days Qty: 6 0RF estradiol 1 mg tablet 1 mg PO DAILY Qty: 30 11RF Referrals Follow up/Referrals: Melissa Padilla MD [Primary Care Provider] - See instructions Activity Restrictions/Add. Instructions Additional Instructions/Restrictions: Read the attached instructions about vesicovaginal fistulas. Call your gear cutting machine operator to discuss this visit. Return if worsened pain, fever, or other concerns. Clinical Impressions Clinical Impression: Vesicovaginal fistula, Urinary incontinence in female Discharge ED Provider: Kristi Joel General Adult HPI General Chief complaint: Urogenital-Female Stated complaint: catheter check Time Seen by Provider: 11/26/23 15:08 Mode of Arrival: Ambulatory Source of Information: Patient Limitations: No Limitations Description of Symptoms (Recalled from ER Triage Doc. by RN): Patient reports she had hysterectomy 5 weeks ago and was having issues holding bladder so she was sent to urology at [facility] on Friday and had indwelling walsh cath placed due to having a fistula. Patient reports discomfort with catheter and is urinating around walsh. History of Present Illness HPI narrative: 47-year-old female with history of ROBERTO/BSO 1 month ago complicated by vesicular vaginal fistula presents with vaginal leaking despite her recently placed catheter. 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 For this reason a catheter was placed to attempt to reduce vaginal leakage of urine but patient states though she has had some urine output into the bag as she is leaking more urine from her vagina. She has also had some increased discomfort of her urethra over the past 2 days and has become concerned about a possible UTI. Related Data Home Medications Medication Instructions Recorded Confirmed aspirin 81 mg tablet 81 mg PO DAILY Blood Thinner 06/13/23 11/26/23 multivitamin (Daily Multi-Vitamin 1 tab PO DAILY Supplement 06/13/23 11/26/23 tablet) Previous Rx's Medication Instructions Recorded ciprofloxacin HCl 250 mg tablet 250 mg PO Q12H 3 days #6 tabs 11/12/23 estradiol 1 mg tablet 1 mg PO DAILY #30 tabs 11/25/23 Allergies Allergy/AdvReac Type Severity Reaction Status Date / Time Penicillins [PENICILLINS] Allergy Mild Verified 11/19/23 13:38 [facility] Disclaimer: The information contained in this section may have been updated after the patient was seen, as this information can be updated by other users. Medical History Abnormal uterine bleeding Dermoid cyst of right ovary Dyspareunia Fibroid uterus Menopausal syndrome (hot flashes) Menorrhagia Surgical History H/O tubal ligation S/P ROBERTO-BSO (total abdominal hysterectomy and bilateral salpingo-oophorectomy) Family History Other Heart attack Hypertension Social History Smoking Status: Current every day smoker second hand exposure: No alcohol intake: never substance use type: denies use current occupational status: employed and other Travel in the last 8 weeks: None ROS Obtained: Yes All systems reviewed & no additional complaints except as documented Genitourinary Female Genitourinary: Denies difficulty voiding, Reports dysuria, Denies flank pain, Denies pelvic pain, Reports urinary incontinence and Denies vaginal odor Physical Exam General General appearance: alert and in no apparent distress Head Head exam: atraumatic, normocephalic and normal inspection Eye Eye exam: Present normal appearance and EOMI ENT ENT exam: Present normal exam, mucous membranes moist and normal external ear exam Neck Neck exam: Present normal inspection and full ROM; Absent meningismus Chest Chest inspection: Present normal inspection and symmetric chest wall rise Respiratory Respiratory exam: Present normal lung sounds bilaterally; Absent respiratory distress Cardiovascular Cardiovascular exam: Present regular rate and normal rhythm; Absent JVD Abdominal Exam Abdominal exam: Present soft; Absent distention, tenderness or guarding External exam: Present walsh catheter in place (Urine in Walsh bag. External pelvic exam shows Walsh catheter in place with small amount of urine from the vagina but no discharge.) Extremities Exam Extremities exam: Present normal inspection, full ROM and normal capillary refill; Absent calf tenderness Back Exam Back exam: Present normal inspection; Absent tenderness Neurological Exam Neurological exam: Present alert and oriented X3 Psychiatric Psychiatric exam: Present normal affect and normal mood Skin Skin exam: Present warm, dry, intact and normal color Medical Decision Making Cordell Inquiry Pt receiving controlled substance: No Cordell was queried for this patient: No Vital Signs: 11/26/23 14:44 Temperature 98.0 F Temperature Source Oral Pulse Rate [Right] 75 Respiratory Rate 18 Blood Pressure [Right Arm] 163/90 H Blood Pressure Mean [Right Arm] 114 Blood Pressure Source [Right Arm] Automatic Cuff 02 Sat by Pulse Oximetry 100 Oxygen Delivery Method Room Air Lab Data Lab Results 11/26/23 15:55: Urine Color Yellow, Urine Appearance Clear, Urine pH 6.0, Ur Specific [place] <= 1.005, Urine Protein Negative, Urine Glucose (UA) Negative, Urine Ketones Negative, Urine Blood 3+, Urine Nitrate Negative, Urine Bilirubin Negative, Urine Urobilinogen 0.2, Ur Leukocyte Esterase Trace Orders (Tests/Meds): ORDERS Category Date Time Status Urinalysis and Microscopic Stat Lab 11/26/23 15:55 Results Urine Culture Stat Micro 11/26/23 15:55 Received Medical Decision Narrative: Considered multiple causes of patient's presentation including UTI, misplaced Walsh catheter, her known vesicovaginal fistula. Fortunately she does not have signs of pyelonephritis, urinary obstruction, or other concerns. Performed [id number] bedside ultrasound to evaluate for this as Walsh catheter and it appears to be appropriately placed in the decompressed bladder and performed external pelvic exam and noted Walsh catheter is appropriately placed in the urethra. Ordered urinalysis which I independently reviewed and interpreted and showed no signs of UTI. Discussed with patient that at this time her symptoms are most likely due to her postoperative fistula but no UTI or Walsh dysfunction. And advised her to call her gear cutting machine operator to discuss her symptoms to determine if she requires a procedure or closer follow-up due to her significant incontinence. Provided leg bag supplies and discharged with return precautions. Procedures Limited Ultrasound Indication:: Bladder exam for dysuria and incontinence Views:: Suprapubic axial and sagittal Findings:: Decompressed bladder with Walsh bulb in place. Interpretation:: Appropriately placed Walsh with no signs of urine retention Disclaimer: Kristi Murray MD independently performed, reviewed and interpreted the ultrasound exam and saved images to the ultrasound database. Critical Care Critical Care Time Critical Care Time: No
[2023-11-26 16:23] LABS: Appearance,Urine CLEAR (Clear); Bilirubin,Urine Negative (Negative); Blood, Urine 3+ (Negative); Color,Urine YELLOW (Yellow); Glucose,Urine (UA) Negative (Negative); Ketones,Urine Negative (Negative); Leukocyte Esterase,Urine TRACE (Negative); Nitrate,Urine Negative (Negative); Protein,Urine Negative (Negative); Specific Gravity, Urine <= 1.005 (1.005-1.030); Urobilinogen,Urine 0.2 EU/dl (0.2)
[2023-11-26 17:10] VITALS: BP 130/70; PULSE 60; RESP 20; TEMP 36.7; O2SAT 97
[2023-11-26 17:53] LABS: Squamous Epithelial Cell,Urine Occasional #/hpf (0-5); WBC,Urine Occasional #/hpf (0-3)
--- NOTE | 2023-12-02 14:36 | PC.NURSE ---
contacted pt about urine culture results, states she was given cipro from her PCP and is feeling a lot better, aware, no further action at this time
== END 2023-11-26 17:11 | disposition home or self-care (01) ==
PROVIDERS: Emergency Provider Emergency Medicine; PCP Family Medicine
DX: N82.0 Vesicovaginal fistula (principal); R32 Unspecified urinary incontinence; F17.200 Nicotine dependence, unspecified, uncomplicated
CPT/HCPCS: 81001; 87086; 99284